=== PATIENT | female | born 1980 | race Caucasian/White ===

== ENCOUNTER 2025-03-22 05:00 | Inpatient (IN) | payer OTHER ==
[2025-03-22 05:33] LABS: BASOPHILS ABSOLUTE AUTO 0.04 K/uL (0.00-0.20); BASOPHILS PERCENT AUTO 0.3 % (0.0-1.0); EOSINOPHILS ABSOLUTE AUTO 0.21 K/uL (0.00-0.45); EOSINOPHILS PERCENT AUTO 1.8 % (0.0-6.0); HEMATOCRIT 39.3 % (37.0-47.0); HEMOGLOBIN 13.4 g/dL (12.0-16.0); IMMATURE GRAN PERCENT AUTO 0.8 % (0.0-0.4); LYMPHOCYTES PERCENT AUTO 20.1 % (24.0-44.0); MEAN CORPUSCULAR HEMOGLOBIN 29.5 pg (28.0-32.0); MEAN CORPUSCULAR HGB CONC 34.1 g/dL (32.0-36.0); MEAN CORPUSCULAR VOLUME 86.4 fL (83.0-99.0); MEAN PLATELET VOLUME 9.1 fL (9.4-12.3); MONOCYTES ABSOLUTE AUTO 0.68 K/uL (0.00-0.80); MONOCYTES PERCENT AUTO 5.7 % (0.0-8.0); NEUTROPHILS ABSOLUTE AUTO 8.49 K/uL (1.80-7.70); NEUTROPHILS PERCENT AUTO 71.3 % (41.0-71.0); PLATELET COUNT,PLT 270 K/uL (150-400); RED BLOOD CELL COUNT 4.55 M/uL (4.10-5.30); WHITE BLOOD CELL COUNT,WBC 11.92 K/uL (3.9-11.3)
[2025-03-22] MEDS: Sodium Chloride 0.9% 1,000 ML IV ONE (05:34)
[2025-03-22] MEDS: Morphine 2 MG/ML SYRINGE IVPUSH ONE (05:34)
[2025-03-22] MEDS: Acetaminophen 500 MG Tab PO ONE (05:35)
[2025-03-22] MEDS: Ondansetron 4 MG/2 ML SDV IVPUSH ONE (05:35)
[2025-03-22 06:58] LABS: A/G RATIO 0.9 (0.9-1.6); ALBUMIN 3.3 g/dL (3.4-5.0); BILIRUBIN TOTAL 1.2 mg/dL (0.2-1.0); CARBON DIOXIDE,CO2 25.5 mmol/L (21.0-32.0); CREATININE 0.8 mg/dL (0.6-1.0); EST CRCL DRUG DOSING (CG) 79.11 mL/min; POTASSIUM,K 3.4 mmol/L (3.5-5.1); PROTEIN TOTAL,TP 6.8 g/dL (6.4-8.2)
[2025-03-22 06:59] LABS: BILIRUBIN,URINE NEGATIVE (NEGATIVE); COLOR,URINE YELLOW; GLUCOSE,URINE 250 mg/dL (NEGATIVE); KETONES,URINE NEGATIVE (NEGATIVE); LEUKOCYTE ESTERASE,URINE NEGATIVE (NEGATIVE); NITRITE,URINE NEGATIVE (NEGATIVE); OCCULT BLOOD,URINE NEGATIVE (NEGATIVE); PH,URINE 5.5 (5.0-8.0); PROTEIN,URINE NEGATIVE (NEGATIVE); UROBILINOGEN,URINE 0.2 EU/dL (<2.0)
[2025-03-22 07:01] LABS: APPEARANCE,URINE HAZY
[2025-03-22 07:02] LABS: CALCIUM 10.1 mg/dL (8.5-10.1)
[2025-03-22] MEDS: Sodium Chloride 0.9% 1,000 ML IV SCH ×3 (07:24→13:30)
[2025-03-22] MEDS ORDERED: Ondansetron 4 MG/2 ML SDV IVPUSH PRN (10:17)
[2025-03-22] MEDS ORDERED: Naloxone 0.4 MG/ML SDV IVPUSH PRN (10:17)
[2025-03-22] MEDS ORDERED: Sodium Chloride 0.9% 10 ML Syringe FLUSH PRN (10:18)
[2025-03-22] MEDS ORDERED: Sodium Chloride 0.9% 2.5 ML Syringe FLUSH PRN (10:18)
[2025-03-22] MEDS ORDERED: 50% Dextrose in Water 50 ML Syringe IVPUSH PRN (10:29)
[2025-03-22] MEDS ORDERED: Glucagon,Human Recombinant 1 MG Vial IM PRN (10:29)
[2025-03-22] MEDS: Piperacillin/Tazobactam 4.5 GM in Sodium Chloride 0.9% 100 ML IV ONE (11:03)
[2025-03-22] MEDS: Insulin Aspart 100 Units/ML 3 ML Pen SUBCUT SCH (13:04)
[2025-03-22] MEDS: Piperacillin/Tazobactam 4.5 GM in Sodium Chloride 0.9% 100 ML IV SCH (17:17)
[2025-03-22] MEDS: Dextrose 5%-0.9% NaCl 1,000 ML IV SCH (17:51)
[2025-03-22] MEDS: busPIRone 15 MG Tab PO SCH (20:15)
[2025-03-22] MEDS: Doxazosin 2 MG Tab PO SCH (20:15)
[2025-03-23 05:55] LABS: BASOPHILS ABSOLUTE AUTO 0.04 K/uL (0.00-0.20); BASOPHILS PERCENT AUTO 0.4 % (0.0-1.0); EOSINOPHILS ABSOLUTE AUTO 0.26 K/uL (0.00-0.45); EOSINOPHILS PERCENT AUTO 2.8 % (0.0-6.0); HEMATOCRIT 33.1 % (37.0-47.0); HEMOGLOBIN 11.2 g/dL (12.0-16.0); IMMATURE GRAN ABSOLUTE AUTO 0.07 K/uL (0.00-0.05); IMMATURE GRAN PERCENT AUTO 0.7 % (0.0-0.4); LYMPHOCYTES ABSOLUTE AUTO 2.67 K/uL (1.00-4.80); LYMPHOCYTES PERCENT AUTO 28.5 % (24.0-44.0); MEAN CORPUSCULAR HEMOGLOBIN 29.9 pg (28.0-32.0); MEAN CORPUSCULAR HGB CONC 33.8 g/dL (32.0-36.0); MEAN CORPUSCULAR VOLUME 88.3 fL (83.0-99.0); MEAN PLATELET VOLUME 9.6 fL (9.4-12.3); MONOCYTES ABSOLUTE AUTO 0.47 K/uL (0.00-0.80); NEUTROPHILS ABSOLUTE AUTO 5.87 K/uL (1.80-7.70); NEUTROPHILS PERCENT AUTO 62.6 % (41.0-71.0); PLATELET COUNT,PLT 240 K/uL (150-400); RED BLOOD CELL COUNT 3.75 M/uL (4.10-5.30); WHITE BLOOD CELL COUNT,WBC 9.38 K/uL (3.9-11.3)
[2025-03-23] MEDS: Levothyroxine 25 MCG Tab PO SCH (06:24)
[2025-03-23 06:31] LABS: A/G RATIO 0.9 (0.9-1.6); ALBUMIN 2.7 g/dL (3.4-5.0); BILIRUBIN TOTAL 1.2 mg/dL (0.2-1.0); CALCIUM 8.4 mg/dL (8.5-10.1); CARBON DIOXIDE,CO2 24.8 mmol/L (21.0-32.0); CREATININE 0.7 mg/dL (0.6-1.0); EST CRCL DRUG DOSING (CG) 91.06 mL/min; MAGNESIUM 1.5 mg/dL (1.8-2.4); POTASSIUM,K 3.2 mmol/L (3.5-5.1); PROTEIN TOTAL,TP 5.7 g/dL (6.4-8.2)
[2025-03-23] MEDS: DULoxetine 60 MG Cap PO SCH (09:47)
[2025-03-23] MEDS: Famotidine 20 MG/2 ML SDV IVPUSH SCH (09:47)
[2025-03-23] MEDS: Magnesium Sulfate 2 GM/50 mL 2 GM in Premix Bag 1 BAG IV ONE (09:50)
[2025-03-23] MEDS: Potassium Chloride 100 ML IV SCH ×2 (09:51→17:55)
[2025-03-23 10:05] LABS: A/G RATIO 0.8 (0.9-1.6); ALBUMIN 2.7 g/dL (3.4-5.0); BILIRUBIN TOTAL 1.5 mg/dL (0.2-1.0); CALCIUM 8.1 mg/dL (8.5-10.1); CARBON DIOXIDE,CO2 26.8 mmol/L (21.0-32.0); CREATININE 0.6 mg/dL (0.6-1.0); EST CRCL DRUG DOSING (CG) 106.24 mL/min; POTASSIUM,K 3.2 mmol/L (3.5-5.1); PROTEIN TOTAL,TP 5.9 g/dL (6.4-8.2)
[2025-03-23] MEDS ORDERED: fentaNYL 250 MCG/5 ML SDV ONE (11:02)
[2025-03-23] MEDS ORDERED: Propofol 200 MG/20 ML SDV ONE (11:02)
[2025-03-23] MEDS ORDERED: propofoL 500 MG/50 ML 50 ML ONE ×2 (11:02→12:23)
[2025-03-23] MEDS ORDERED: Cisatracurium Besylate 10 MG/5 ML SDV ONE (11:07)
[2025-03-23] MEDS ORDERED: Ropivacaine 0.5% 5 MG/ML 30 ML SDV ONE ×2 (11:07→17:41)
[2025-03-23] MEDS ORDERED: Bupivacaine 0.5% 30 ML SDV ONE (11:19)
[2025-03-23] MEDS ORDERED: Lidocaine 2% 11 ML Jelly Filled Syringe ONE (11:47)
[2025-03-23] MEDS ORDERED: fentaNYL 100 MCG/2 ML SDV ONE ×2 (12:43→13:13)
[2025-03-23] MEDS ORDERED: ePHEDrine 50 MG/ML SDV ONE (13:15)
[2025-03-23] MEDS ORDERED: Phenylephrine HCl In 0.9% NaCl 1 MG/10 ML Syringe ONE (13:15)
[2025-03-23] MEDS ORDERED: Ondansetron 4 MG/2 ML SDV ONE (13:15)
[2025-03-23] MEDS: fentaNYL 50 MCG/ML SDV IVPUSH ONE (13:49)
[2025-03-23] MEDS: Morphine 2 MG/ML SYRINGE IVPUSH PRN (16:14)
[2025-03-23] MEDS: Polyethylene Glycol 3350 Powder 17 GM Packet PO SCH (20:10)
[2025-03-24] MEDS: Acetaminophen 325 MG Tab PO PRN (03:15)
[2025-03-24] MEDS: Acetaminophen/oxyCODONE 325-5 MG Tab PO PRN (10:43)
== END 2025-03-24 10:33 | disposition home or self-care (01) | DRG 817 ==
LOC: MW.ED 05:00 → MW.MS 09:58 → OBSVTOIN 09:58 → INTOOBSV 09:58
PROVIDERS: ADMIT Family Medicine; ATTEND Family Medicine
PROC: 0FT44ZZ Resection of Gallbladder, Percutaneous Endoscopic Approach (ICD-10-PCS; principal; 2025-03-22)
DX: O99.891 Other specified diseases and conditions complicating pregnancy (principal); R10.10 Upper abdominal pain, unspecified; K85.90 Acute pancreatitis without necrosis or infection, unspecified; K81.9 Cholecystitis, unspecified; O99.611 Diseases of the digestive system complicating pregnancy, first trimester; K85.10 Biliary acute pancreatitis without necrosis or infection; K80.00 Calculus of gallbladder with acute cholecystitis without obstruction; O24.911 Unspecified diabetes mellitus in pregnancy, first trimester; Z87.891 Personal history of nicotine dependence; Z79.84 Long term (current) use of oral hypoglycemic drugs; Z79.899 Other long term (current) drug therapy; Z3A.13 13 weeks gestation of pregnancy
CPT/HCPCS: 36415; 74181; 76705; 76815; 80053; 81003; 83690; 84702; 85025; 96361; 96374; 96375; 99285; A9270; J2270; J2405; J7030 ×2; 00790; 64488; 82947; 83735; J0665; J2371; J2543; J2704; J2795; J3010; J3475; J3480; J3490; J7042

== ENCOUNTER 2025-09-02 12:44 | Inpatient (IN) | payer OTHER ==
[2025-09-02] MEDS ORDERED: Sodium Chloride 0.9% 2.5 ML Syringe FLUSH PRN ×2 (13:35→13:49)
[2025-09-02] MEDS ORDERED: Sodium Chloride 0.9% 10 ML Syringe FLUSH PRN ×2 (13:35→13:49)
[2025-09-02] MEDS ORDERED: Carboprost Tromethamine 250 MCG/1 mL Vial IM PRN (13:49)
[2025-09-02] MEDS ORDERED: Labetalol 100 MG/20 ML MDV IVPUSH PRN (13:49)
[2025-09-02] MEDS ORDERED: Water For Irrigation,Sterile 1,000 ML Container IRR PRN (13:49)
[2025-09-02] MEDS ORDERED: Calcium Gluconate 10% 1 GM/10 ML SDV IV PRN (13:49)
[2025-09-02] MEDS ORDERED: Butorphanol 1 MG/ML SDV IVPUSH PRN (13:49)
[2025-09-02 13:53] LABS: GLUCOSE,URINE NEGATIVE (NEGATIVE); OCCULT BLOOD,URINE NEGATIVE (NEGATIVE)
[2025-09-02 13:55] LABS: APPEARANCE,URINE SLT CLOUDY
[2025-09-02] MEDS ORDERED: Oxytocin/0.9 % Sodium Chloride 30 UNIT/500 ML BAG IV SCH (14:00)
[2025-09-02] MEDS ORDERED: Lactated Ringers 1,000 ML IV SCH (14:00)
[2025-09-02 14:01] LABS: SQUAMOUS EPITHELIAL CELLS,UR MANY
[2025-09-02] MEDS: Lactated Ringers 1,000 ML IV SCH (14:30)
[2025-09-02 14:42] LABS: CREATININE,URINE RAND 66.4 mg/dL; PROTEIN CREATININE RATIO,URINE 0.8; PROTEIN,URINE RANDOM 53.5 mg/dL (<11.9)
[2025-09-02 15:06] LABS: MEAN PLATELET VOLUME 10.8 fL (9.4-12.3); NRBC ABSOLUTE 0.00 K/uL (0.00-0.02); NRBC PERCENT 0.0 /100WBC (0.0-0.2); PLATELET COUNT,PLT 339 K/uL (150-400); RED BLOOD CELL COUNT 4.34 M/uL (4.10-5.30); WHITE BLOOD CELL COUNT,WBC 10.56 K/uL (3.9-11.3)
[2025-09-02 15:28] LABS: A/G RATIO 0.6 (0.9-1.6); ALANINE AMINOTRANSFERASE,ALT 16.0 IU/L (14-63); ASPARTATE AMNIOTRANSFERASE,AST 18.0 IU/L (15-37); BILIRUBIN TOTAL 0.5 mg/dL (0.2-1.0); BLOOD UREA NITROGEN,BUN 9.0 mg/dL (7.0-18.0); CARBON DIOXIDE,CO2 23.0 mmol/L (21.0-32.0); CHLORIDE,CL 103.0 mmol/L (98-107); CREATININE 0.7 mg/dL (0.6-1.0); EST CRCL DRUG DOSING (CG) 89.48 mL/min; GLUCOSE RANDOM 73.0 mg/dL (74-106); POTASSIUM,K 3.7 mmol/L (3.5-5.1); PROTEIN TOTAL,TP 7.0 g/dL (6.4-8.2); SODIUM,NA 137.0 mmol/L (136-145)
[2025-09-02 15:32] LABS: ESTIMATED GFR 110.0 mL/min (>60)
[2025-09-02] MEDS: Misoprostol 25 MCG (1/4 of 100 MCG) Tab ONE (19:44)
[2025-09-03] MEDS: Ropivacaine HCl/PF 200 ML ONE (00:50)
[2025-09-03] MEDS: Oxytocin/0.9 % Sodium Chloride 30 UNIT/500 ML BAG IV SCH (01:16)
[2025-09-03] MEDS: dexmedeTOMIDine HCl 200 MCG/2 ML SDV ONE (12:18)
[2025-09-03] MEDS: Misoprostol 50 MCG (1/2 of 100 MCG) Tab VAG ONE (12:18)
[2025-09-03] MEDS: Terbutaline 1 MG/ML SDV SUBCUT SCH (15:31)
[2025-09-03] MEDS: Ondansetron 4 MG/2 ML SDV IVPUSH PRN (16:29)
[2025-09-03] MEDS ORDERED: Ondansetron 4 MG/2 ML SDV ONE (16:59)
[2025-09-03] MEDS ORDERED: fentaNYL 100 MCG/2 ML SDV ONE (16:59)
[2025-09-03] MEDS ORDERED: Morphine PF 10 MG/10 ML SDV ONE (16:59)
[2025-09-03] MEDS ORDERED: Ropivacaine 0.5% 5 MG/ML 30 ML SDV ONE (16:59)
[2025-09-03] MEDS ORDERED: Oxytocin 10 Units/1 ML SDV ONE (16:59)
[2025-09-03] MEDS ORDERED: Ketorolac 30 MG/ML SDV ONE (16:59)
[2025-09-03] MEDS ORDERED: Dexamethasone Sod Phos Preservative Free 10 MG/ML Vial ONE (16:59)
[2025-09-03 18:32] LABS: PH,UMBILICAL ARTERIAL 7.05 (7.18-7.38); PH,UMBILICAL VENOUS 7.1 (7.25-7.45)
[2025-09-03] MEDS ORDERED: Sodium Chloride 0.9% 2.5 ML Syringe FLUSH PRN (18:36)
[2025-09-03] MEDS ORDERED: Carboprost Tromethamine 250 MCG/1 mL Vial IM PRN (18:36)
[2025-09-03] MEDS ORDERED: Ondansetron 4 MG/2 ML SDV IVPUSH PRN ×3 (18:36→18:48)
[2025-09-03] MEDS ORDERED: Sodium Chloride 0.9% 10 ML Syringe FLUSH PRN (18:36)
[2025-09-03] MEDS ORDERED: Lanolin 100% Cream 7 GM Tube TOP PRN (18:36)
[2025-09-03] MEDS ORDERED: Oxytocin/0.9 % Sodium Chloride 30 UNIT/500 ML BAG IV SCH (18:45)
[2025-09-03] MEDS: Terbutaline 1 MG/ML SDV ONE (18:48)
[2025-09-03] MEDS ORDERED: Acetaminophen/oxyCODONE 325-5 MG Tab PO PRN (18:48)
[2025-09-03] MEDS ORDERED: fentaNYL 50 MCG/ML SDV IVPUSH PRN (18:48)
[2025-09-03] MEDS ORDERED: fentaNYL 100 MCG/2 ML SDV IVPUSH PRN (18:48)
[2025-09-03] MEDS ORDERED: Nalbuphine 10 MG/1 ML Vial IVPUSH PRN (18:48)
[2025-09-03] MEDS ORDERED: Naloxone 0.4 MG/ML SDV IVPUSH PRN (18:48)
[2025-09-03] MEDS ORDERED: diphenhydrAMINE 50 MG/ML SDV IVPUSH PRN (18:48)
[2025-09-03] MEDS ORDERED: Albuterol 0.083% 2.5 MG/3 ML Neb Soln NEB PRN (18:48)
[2025-09-03] MEDS: metFORMIN 500 MG Tab.ER PO SCH (22:35)
[2025-09-03] MEDS: Ketorolac 30 MG/ML SDV IVPUSH SCH (23:47)
[2025-09-04 06:10] LABS: BASOPHILS ABSOLUTE AUTO 0.03 K/uL (0.00-0.20); BASOPHILS PERCENT AUTO 0.2 % (0.0-1.0); EOSINOPHILS ABSOLUTE AUTO 0.00 K/uL (0.00-0.45); EOSINOPHILS PERCENT AUTO 0.0 % (0.0-6.0); IMMATURE GRAN ABSOLUTE AUTO 0.11 K/uL (0.00-0.05); IMMATURE GRAN PERCENT AUTO 0.7 % (0.0-0.4); LYMPHOCYTES ABSOLUTE AUTO 1.74 K/uL (1.00-4.80); LYMPHOCYTES PERCENT AUTO 10.3 % (24.0-44.0); MEAN PLATELET VOLUME 10.1 fL (9.4-12.3); MONOCYTES ABSOLUTE AUTO 0.91 K/uL (0.00-0.80); MONOCYTES PERCENT AUTO 5.4 % (0.0-8.0); NEUTROPHILS ABSOLUTE AUTO 14.04 K/uL (1.80-7.70); NEUTROPHILS PERCENT AUTO 83.4 % (41.0-71.0); NRBC ABSOLUTE 0.00 K/uL (0.00-0.02); NRBC PERCENT 0.0 /100WBC (0.0-0.2); PLATELET COUNT,PLT 310 K/uL (150-400); RED BLOOD CELL COUNT 3.71 M/uL (4.10-5.30); WHITE BLOOD CELL COUNT,WBC 16.83 K/uL (3.9-11.3)
[2025-09-04 06:31] LABS: A/G RATIO 0.6 (0.9-1.6); ALANINE AMINOTRANSFERASE,ALT 12.0 IU/L (14-63); ASPARTATE AMNIOTRANSFERASE,AST 22.0 IU/L (15-37); BILIRUBIN TOTAL 0.6 mg/dL (0.2-1.0); BLOOD UREA NITROGEN,BUN 10.0 mg/dL (7.0-18.0); CARBON DIOXIDE,CO2 27.3 mmol/L (21.0-32.0); CHLORIDE,CL 104.0 mmol/L (98-107); CREATININE 0.8 mg/dL (0.6-1.0); EST CRCL DRUG DOSING (CG) 78.3 mL/min; GLUCOSE RANDOM 107.0 mg/dL (74-106); POTASSIUM,K 4.3 mmol/L (3.5-5.1); PROTEIN TOTAL,TP 6.1 g/dL (6.4-8.2); SODIUM,NA 138.0 mmol/L (136-145)
[2025-09-04 06:33] LABS: ESTIMATED GFR 94.0 mL/min (>60)
[2025-09-04] MEDS: NIFEdipine 30 MG Tab.ER PO SCH (09:08)
[2025-09-04] MEDS: Sodium Ferric Gluconate Cmplex 125 MG in Sodium Chloride 0.9% 100 ML IV SCH (15:50)
[2025-09-05] MEDS: Sodium Ferric Gluconate Cmplex 125 MG in Sodium Chloride 0.9% 100 ML IV SCH (09:39)
== END 2025-09-05 13:37 | disposition home or self-care (01) | DRG 788 ==
LOC: MW.OBCHECK 12:44 → MW.OB 13:35 → OBSVTOIN 09-03 18:36 → MW.OB 09-03 23:11
PROVIDERS: ADMIT Obstetrics & Gynecology; ATTEND Obstetrics & Gynecology
PROC: 10D00Z1 Extraction of Products of Conception, Low, Open Approach (ICD-10-PCS; principal; 2025-09-02)
PROC: 10907ZC Drainage of Amniotic Fluid, Therapeutic from Products of Conception, Via Natural or Artificial Opening (ICD-10-PCS; 2025-09-02)
PROC: 3E0R3BZ Introduction of Anesthetic Agent into Spinal Canal, Percutaneous Approach (ICD-10-PCS; 2025-09-02)
DX: O24.12 Pre-existing type 2 diabetes mellitus, in childbirth (principal); O99.824 Streptococcus B carrier state complicating childbirth; Z3A.37 37 weeks gestation of pregnancy; Z37.0 Single live birth; O99.214 Obesity complicating childbirth; O14.94 Unspecified pre-eclampsia, complicating childbirth; Z87.891 Personal history of nicotine dependence; Z79.899 Other long term (current) drug therapy; Z79.84 Long term (current) use of oral hypoglycemic drugs; Z90.49 Acquired absence of other specified parts of digestive tract; Z98.890 Other specified postprocedural states; O90.81 Anemia of the puerperium
CPT/HCPCS: 01967; 36415; 51702; 59025; 76805; 76805-26; 80053; 81001; 82570; 82803; 82947; 84156; 84550; 85025; 85027; 86592; 86850; 86900; 86901; 87086; A9270-GY; J0166; J0290; J0456; J0665; J0690; J1100; J1885; J2003; J2274; J2371; J2405; J2590; J2795; J2916; J3010; J3105; J7120

== ENCOUNTER 2025-09-05 18:29 | Emergency (ER) | payer OTHER ==
[2025-09-05] MEDS ORDERED: Sodium Chloride 0.9% 10 ML Syringe FLUSH PRN (19:58)
[2025-09-05] MEDS ORDERED: Sodium Chloride 0.9% 2.5 ML Syringe FLUSH PRN (19:58)
[2025-09-05 20:00] LABS: BASOPHILS ABSOLUTE AUTO 0.05 K/uL (0.00-0.20); BASOPHILS PERCENT AUTO 0.4 % (0.0-1.0); EOSINOPHILS ABSOLUTE AUTO 0.20 K/uL (0.00-0.45); EOSINOPHILS PERCENT AUTO 1.8 % (0.0-6.0); IMMATURE GRAN ABSOLUTE AUTO 0.18 K/uL (0.00-0.05); IMMATURE GRAN PERCENT AUTO 1.6 % (0.0-0.4); LYMPHOCYTES ABSOLUTE AUTO 2.19 K/uL (1.00-4.80); LYMPHOCYTES PERCENT AUTO 19.3 % (24.0-44.0); MEAN PLATELET VOLUME 9.8 fL (9.4-12.3); MONOCYTES ABSOLUTE AUTO 0.71 K/uL (0.00-0.80); MONOCYTES PERCENT AUTO 6.3 % (0.0-8.0); NEUTROPHILS ABSOLUTE AUTO 8.02 K/uL (1.80-7.70); NEUTROPHILS PERCENT AUTO 70.6 % (41.0-71.0); NRBC ABSOLUTE 0.00 K/uL (0.00-0.02); NRBC PERCENT 0.0 /100WBC (0.0-0.2); PLATELET COUNT,PLT 334 K/uL (150-400); RED BLOOD CELL COUNT 3.36 M/uL (4.10-5.30); WHITE BLOOD CELL COUNT,WBC 11.35 K/uL (3.9-11.3)
[2025-09-05 20:18] LABS: INR < 0.93 (0.86-1.11)
[2025-09-05 20:18] LABS: APPEARANCE,URINE CLEAR; GLUCOSE,URINE NEGATIVE (NEGATIVE); OCCULT BLOOD,URINE SMALL (NEGATIVE)
[2025-09-05 20:26] LABS: SQUAMOUS EPITHELIAL CELLS,UR FEW
[2025-09-05 20:31] LABS: A/G RATIO 0.6 (0.9-1.6); ALANINE AMINOTRANSFERASE,ALT 16.0 IU/L (14-63); ASPARTATE AMNIOTRANSFERASE,AST 20.0 IU/L (15-37); BILIRUBIN TOTAL 0.2 mg/dL (0.2-1.0); BLOOD UREA NITROGEN,BUN 13.0 mg/dL (7.0-18.0); CARBON DIOXIDE,CO2 26.3 mmol/L (21.0-32.0); CHLORIDE,CL 106.0 mmol/L (98-107); CREATININE 0.9 mg/dL (0.6-1.0); EST CRCL DRUG DOSING (CG) 69.6 mL/min; ESTIMATED GFR 81.0 mL/min (>60); GLUCOSE RANDOM 118.0 mg/dL (74-106); POTASSIUM,K 4.4 mmol/L (3.5-5.1); PRO B-TYPE NATRIUR PEPT,BNPPRO 49.0 pg/mL (0-125); PROTEIN TOTAL,TP 5.9 g/dL (6.4-8.2); SODIUM,NA 143.0 mmol/L (136-145)
== END 2025-09-06 00:14 | disposition home or self-care (01) ==
LOC: MW.ED 18:29
DX: O90.81 Anemia of the puerperium (principal); R60.0 Localized edema; Z79.890 Hormone replacement therapy; Z79.84 Long term (current) use of oral hypoglycemic drugs; Z79.899 Other long term (current) drug therapy
CPT/HCPCS: 36415; 80053; 81001; 83735; 83880; 84484; 85025; 85610; 93970; 93970-26; 99283; 99284